=== PATIENT | female | born 1975 | race Caucasian/White ===

== ENCOUNTER 2016-11-17 15:52 | Emergency (ER) | payer SELFPAY ==
[2016-11-17 16:00] VITALS: BP 137/72; PULSE 79; TEMP 98.4; BMI 28.3
[2016-11-17] MEDS ORDERED: CEPHALEXIN MONOHYDRATE 500 MG CAPSULE (UD) PO ONE (16:25)
[2016-11-17] MEDS ORDERED: IBUPROFEN 600 MG TABLET (FP) PO ONE (16:25)
--- NOTE | 2016-11-17 16:31 | PDOC ---
History of Present Illness - General Chief Complaint: Abscess Boil Stated Complaint: RT WRIST SWELLING, BITE Time Seen by Provider: 11/17/16 16:07 History Source: Patient Exam Limitations: No Limitations - History of Present Illness Initial Comments: 11/17/16 16:26 41 yr female with insect bite to right inner wrist 7 days ago , pt has been scratching at it and the past 2 days noticed redness, pain and swelling and yellow drainage today. no fever or chills, no medical history. Past History - Past Medical History Allergies/Adverse Reactions: Allergies Allergy/AdvReac Type Severity Reaction Status Date / Time No Known Allergies Allergy Verified 11/17/16 16:00 Home Medications: Ambulatory Orders No Home Medications 0 dose .ROUTE UTDICT 07/28/12 Oxycodone HCl/Acetaminophen [Percocet 5-325 mg Tablet] 1 - 2 tab PO Q6H PRN #30 tablet 07/28/12 Cephalexin [Keflex] 500 mg PO BID #14 capsule 11/17/16 Mupirocin Ointment [Bactroban] 1 applic TP BID #1 tube 11/17/16 Other medical history: NONE - Immunization History Immunization Up to Date: No - Psycho/Social/Smoking Cessation Hx Anxiety: No Suicidal Ideation: No Smoking Status: No Smoking History: Never smoked Number of Cigarettes Smoked Daily: 0 Hx Alcohol Use: No Drug/Substance Use Hx: No Substance Use Type: None Review of Systems - Review of Systems Able to Perform ROS?: Yes Is the patient limited Norwegian proficient: No Constitutional: No: Symptoms Reported HEENTM: No: Symptoms Reported Respiratory: No: Symptoms reported Cardiac (ROS): No: Symptoms Reported ABD/GI: No: Symptoms Reported : No: Symptoms Reported Musculoskeletal: No: Symptoms Reported Integumentary: Yes: Symptoms Reported, See HPI Neurological: No: Symptoms reported *Physical Exam - Vital Signs Last Vital Signs Temp Pulse Resp BP Pulse Ox 98.4 F 79 20 137/72 100 11/17/16 15:57 11/17/16 15:57 11/17/16 15:57 11/17/16 15:57 11/17/16 15:57 - Physical Exam General Appearance: Yes: Nourished HEENT: positive: EOMI, KANG, Normal ENT Inspection, TMs Normal, Pharynx Normal Neck: positive: Supple. negative: Tender Respiratory/Chest: positive: Normal Breath Sounds Cardiovascular: positive: Regular Rhythm, Regular Rate Musculoskeletal: positive: Normal Inspection Extremity: positive: Normal Capillary Refill, Other (right inner wrist with 2cm induration soft center with pinpoint fluctuance ) Integumentary: positive: Normal Color, Dry, Warm Neurologic: positive: Fully Oriented, Alert, Normal Mood/Affect, Normal Response , Motor Strength 5/5 Procedures - Incision and Drainage I&D Site: Right: Other (inner wrist ) Betadine cleansed: Yes Anesthesia: other (topical benzocaine spray) Blade Size: 18 gauge hollow bore needle Dressing: Yes (scant amount of serous angenous drainage ) Medical Decision Making - Medical Decision Making 11/17/16 16:33 cc: infected insect bite to the right inner wrist for 2 days some drainage today pt states will I&D warm compresses to the inner wrist will place on keflex and bactroban dc home with strict follow up in 48hrs 11/17/16 16:35 *DC/Admit/Observation/Transfer Diagnosis at time of Disposition: Abscess - Discharge Dispostion Disposition: HOME Condition at time of disposition: Good - Prescriptions Prescriptions: Mupirocin Ointment [Bactroban] 1 applic TP BID #1 tube Cephalexin [Keflex] 500 mg PO BID #14 capsule - Referrals Referrals: Stanislaw Mims MD [Staff Physician] - - Patient Instructions Additional Instructions: keep clean with antibacterial soap and water apply the Bactroban ointment as prescribed and cover with bandaid if draining take the antibiotic as prescribed apply frequent warm moist compresses for 15 minutes every 3-4hrs follow with your doctor or the surgeon if symptoms worsen or persist
== END 2016-11-17 16:42 | disposition home or self-care (01) ==
LOC: JERFT 15:52
PROC: 0H9DXZZ Drainage of Right Lower Arm Skin, External Approach (ICD-10-PCS; principal; 2016-11-17)
DX: S60.861A Insect bite (nonvenomous) of right wrist, initial encounter (principal); L08.9 Local infection of the skin and subcutaneous tissue, unspecified; L03.113 Cellulitis of right upper limb; W57.XXXA Bitten or stung by nonvenomous insect and other nonvenomous arthropods, initial encounter; Y93.89 Activity, other specified; Y92.89 Other specified places as the place of occurrence of the external cause
CPT/HCPCS: 99281-25